=== PATIENT | male | born 1960 ===

== ENCOUNTER 2020-10-06 05:55 | Day surgery (SDC) | payer OTHER ==
[~2020-10-06] VITALS: Ht 180.3 cm; Wt 104.0 kg
--- NOTE | 2020-10-06 09:18 | NUR ---
10/06/20 0918 Sheets,[place] 0908 PT ARRIVED TO PACU WITH ORAL AIRWAY IN PLACE AND O2 SAT 89%, O2 INCREASED TO 8L AND JAW THRUST USED. SECOND RN AT BEDSIDE. PT NONAROUSABLE TO PAIN STIMULI. 0915 PT WOKE TO PAINFUL STIMUL AND FOLLOWS COMMANDS TO OPEN MOUTH, AIRWAY REMOVED. PT ENCOURAGED TO DEEP BREATHE.
[2020-10-06] MEDS ORDERED: IBUPROFEN600 MG PO (09:23)
[2020-10-06] MEDS ORDERED: HYDROCODON-ACE1 EA10 PO (09:25)
[2020-10-06] MEDS ORDERED: ACETAMINOPHEN500 MG PO (09:25)
--- NOTE | 2020-10-06 09:50 | NUR ---
PATIENT BACK TO ROOM APPEARS DROWSY, SATURATION 98% RA. PATIENT EATING SNACKS AND DRINKING WATER. RATES PAIN 5/10. GIRLFRIEND AT BEDSIDE. DRESSING C/D/I, SMALL AMOUNT OF RED DRAINAGE AT UNBILICUS.
--- NOTE | 2020-10-06 10:50 | NUR ---
PATIENT REQUESTING MORE COFFEE AND SNACKS, STATES " GIVE ME 20 MORE MINUTES AND I WILL GET UP AND PEE" DRESSING HAVE NO NEW DRAINAGE. STERI STRIPS INTACT. RATES PAIN 3/10 ON PAIN SCALE. VSS.
--- NOTE | 2020-10-06 11:25 | NUR ---
1120 HAS BEEN UP TO BR VOIDS QS. SCOPE SITES OOZING RED DRAINAGE. AMB IN ROOM. AFTER RETURNING TO BED LARGE BANDAIDS OVER SCOPE SITES. PT STATES FEELING PRETTY GOOD.
--- NOTE | 2020-10-06 12:30 | NUR ---
PROVIDED PATIENT WITH DISCHARGE INSTRUCTION. ANSWERED QUESTIONS AND CONCERNS. SIG OTHER AT BEDSIDE HEARING INSTRUCTION. PATIENT STAYING TO EAT LUNCH, WILL CALL WHEN READY TO HAVE WHEELCHAIR RIDE OUT.
--- NOTE | 2020-10-08 12:37 | OR ---
[facility] [address], [place] [address] Signed DATE OF OPERATION: 10/06/2020 SURGEON: Linh Hernandez MD PREOPERATIVE DIAGNOSIS: Chronic calculous cholecystitis. POSTOPERATIVE DIAGNOSES: 1. Chronic calculous cholecystitis. 2. Extensive pericholecystic adhesions. PROCEDURES: 1. Laparoscopic cholecystectomy; prolonged, complicated, and difficult. 2. Surgeon-directed fluoroscopy. ANESTHESIA: General endotracheal; Craig Brown CRNA and local 20 mL of 0.25% Marcaine with epinephrine. 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 Jeronimo Gomez, having findings of typical biliary colic symptoms including right upper abdominal pain. A CT scan had been performed, which showed "gallstones." An ultrasound was not performed. The patient has not had COVID disease that he knows of nor is he willing to take the COVID vaccine. He tests negatively preoperatively, however. He has been offered laparoscopic cholecystectomy, possible open procedure for symptomatic gallstones; understands the risks of bleeding, infection, bile duct injury, need for open procedure, and of course failure to cure his symptoms. Understanding this, he wished to proceed. The patient himself lives in [facility]. FINDINGS: Gallbladder was quite chronically inflamed. Dense omental adhesion surrounding the gallbladder, which was thickened and chronically inflamed. The operation was prolonged, complicated, and difficult on the basis of that. It was accomplished safely however. Cholangiogram was normal. Gallbladder once excised showed a single large gallstone nearly the size of the gallbladder itself. The liver had mild blunted edge consistent with mild steatosis, but no evidence of inflammation of cirrhosis. There were no other findings of concern. Electronically Signed By: LINH HERNANDEZ MD 10/08/20 1237 PATIENT NAME: YOVANY LEE OPERATIVE REPORT DATE OF : 64 REPORT #: [id number] PHYSICIAN: LINH HERNANDEZ MD PCP: JERONIMO GOMEZ MD REPORT IS CONFIDENTIAL AND NOT TO BE RELEASED WITHOUT AUTHORIZATION [facility] [address], [place] [address] Signed DESCRIPTION OF PROCEDURE: The patient was brought to the operating room, given a general endotracheal anesthetic. Preoperative antibiotic Ancef was given. Sequential compression device stockings were used. Heparin subcutaneously administered. The abdomen was clipped and prepared with a chlorhexidine solution and draped sterilely. Had a fair amount of abdominal obesity. An infraumbilical incision was made and using an open Fco cannula technique, pneumoperitoneum was achieved to a level of 14 mmHg of carbon dioxide gas. Intraabdominal inspection showed no sign of ascites or carcinomatosis. The liver had no signs of cirrhosis, but mild fatty infiltration. The very apex of the gallbladder was visualized and dense omental adhesions were noted. Three additional trocars were placed in usual configuration in the subxiphoid, right midclavicular, and right anterior axillary line. The tip of the gallbladder was grasped and elevated and dense omental adhesions were noted. Using blunt electrocautery dissection, extensive dissection of omental adhesions from the gallbladder was undertaken. The gallbladder itself could not be grasped due to a single large stone occupying essentially all the gallbladder itself. Further elevation of the gallbladder and application of another 5 mm port allowed for retraction of duodenum and omentum medially. This port was placed in the epigastric area as well. Ultimately, the gallbladder was freed from surrounding omental adhesions and the very junction of the infundibulum and the cystic duct could be grasped and elevated and using blunt dissection primarily ultimately, the cystic duct was well identified. A clip was applied across the gallbladder cystic duct junction and a transverse choledochotomy made in the cystic duct. The cystic duct was milked in a retrograde fashion. No bile was forthcoming. Using an Dempsey-type cholangiocatheter, intraoperative cholangiography was undertaken showing free flow of contrast in the biliary tree with prompt emptying into the duodenum. The biliary tree was slightly dilated, but not pathologically sewn as no sign of abnormality or biliary anomaly. The cystic duct was triply clipped and divided and the gallbladder dissected free in a retrograde fashion using electrocautery. Ultimately, the gallbladder was placed in an endobag and extracted through the infraumbilical port site. The gallbladder had a single large stone, which was 4 to 5 cm in length. There was no evidence of malignancy, but chronic obstruction was quite clear. Irrigation was undertaken in subhepatic space. There was no sign of bile leak bleeding or other problems. Excess irrigation fluid was suctioned free. The trocars were removed under direct visualization showing no sign of bleeding. The infraumbilical fascial incision was reapproximated with interrupted 0 Vicryl suture. Skin incision was closed with interrupted 3-0 Vicryl. Steri-Strips were applied. The patient was ultimately extubated and transferred to the recovery room in good condition having suffered no complication. Sponge, needle, and instrument counts were reported as correct x3. The operation was rather prolonged, complicated, and difficult lasting 4 times longer than expected. Largely, this was related to his obesity, extensive adhesions of omentum to the gallbladder, and the large gallstone occupying most of the gallbladder itself. Electronically Signed By: LINH HERNANDEZ MD 10/08/20 1237 PATIENT NAME: YOVAYN LEE OPERATIVE REPORT DATE OF : 64 REPORT #: [id number] PHYSICIAN: LINH HERNANDEZ MD PCP: JERONIMO GOMEZ MD REPORT IS CONFIDENTIAL AND NOT TO BE RELEASED WITHOUT AUTHORIZATION [address] [place], [place] [address] Signed MD MAEVE Castillo/KIM /[id number] cc: Jeronimo Gomez MD Copies: JERONIMO GOMEZ MD ~ Electronically Signed By: LINH HERNANDEZ MD 10/08/20 1237 PATIENT NAME: YOVANY LEE OPERATIVE REPORT DATE OF : 64 REPORT #: [id number] PHYSICIAN: LINH HERNANDEZ MD PCP: JERONIMO GOMEZ MD REPORT IS CONFIDENTIAL AND NOT TO BE RELEASED WITHOUT AUTHORIZATION
--- NOTE | 2020-10-10 14:39 | PATH ---
[facility] [address], [place] [address] Signed SPECIMEN(S): A GALLBLADDER AND STONES SPECIMEN SOURCE: A. GALLBLADDER AND STONES CLINICAL HISTORY: Laparoscopic cholecystectomy. Cholecystitis. FINAL PATHOLOGIC DIAGNOSIS: Gallbladder, cholecystectomy: - Chronic cholecystitis with cholelithiasis. NAL:cml:C2NR MICROSCOPIC EXAMINATION: Histologic sections of all submitted blocks are examined by light microscopy. These findings, together with the gross examination, support the pathologic diagnosis. GROSS DESCRIPTION: The specimen, labeled "HEATHER, A.," and designated on the requisition "gallbladder with stone," is received in formalin and consists of Specimen: Disrupted, possibly previously opened gallbladder. Dimensions: 7.9 x 3.7 cm. Serosa: Violaceous and smooth with attached adipose tissue. Cystic Duct: Unable to determine, duct received incomplete due to disruption. Calculi: One large, multi-pigmented, round calculus measuring 4.2 x 2.6 x 2.3 cm. Mucosa: Martinez-pink and roughened, congested at cystic duct. Wall thickness: Up to 0.8 cm. Lymph node: No pericystic lymph nodes are grossly identified. Additional: None. Reed [employer] Wind Instrument Repairer sections are submitted in cassette (A1). AT (under the direct supervision of a pathologist) Additional tissue is submitted in cassette A2 per Dr. Vance's request. FB The Gross Description was prepared using a voice recognition system. The report was reviewed for accuracy; however, sound-alike word errors, addition and/or deletions may occur. If there is any question about this report, please contact Client Services. PERFORMING LABORATORY: PATIENT NAME: YOVANY LEE PATHOLOGY DATE OF : 64 REPORT #: [id number] PHYSICIAN: SNEHA STEWART PCP: JERONIMO VICENTE MD REPORT IS CONFIDENTIAL AND NOT TO BE RELEASED WITHOUT AUTHORIZATION [facility] [address] [address] Signed The technical component was performed by [place] [address] (Small Animal Caretaker: Krista Jacinto MD; CLIA# [id number]). Professional interpretation was performed by [employer] [facility], [address] [address] (CLIA# [id number]). Diagnostician: Janna Vance MD Pathologist Electronically Signed 10/10/2020 Copies: ~ PATIENT NAME: YOVANY LEE PATHOLOGY DATE OF : 64 REPORT #: [id number] PHYSICIAN: SNEHA STEWART PCP: JERONIMO VICENTE MD REPORT IS CONFIDENTIAL AND NOT TO BE RELEASED WITHOUT AUTHORIZATION
== END 2020-10-06 12:30 | disposition home or self-care (01) ==
LOC: DS 05:55
PROVIDERS: ATTEND Surgery
PROC: BF12YZZ Fluoroscopy of Gallbladder using Other Contrast (ICD-10-PCS; 2020-10-06)
PROC: 0FT44ZZ Resection of Gallbladder, Percutaneous Endoscopic Approach (ICD-10-PCS; principal; 2020-10-06 06:45)
DX: K80.10 Calculus of gallbladder with chronic cholecystitis without obstruction (principal); K66.0 Peritoneal adhesions (postprocedural) (postinfection); E66.9 Obesity, unspecified; Z68.34 Body mass index [BMI] 34.0-34.9, adult; Z98.890 Other specified postprocedural states; Z87.891 Personal history of nicotine dependence
CPT/HCPCS: 00790; 74300; 88304; J0131; J0330; J0690; J1100; J1644; J1885; J2405; J2704; J3010; J7121; Q9967